=== PATIENT | female | born 1975 | race African-American/Black ===

== ENCOUNTER 2020-10-11 06:23 | Emergency (ER) | payer BC ==
[~2020-10-11] VITALS: Ht 162.6 cm; Wt 126.3 kg
[2020-10-11 06:30] VITALS: BP 157/88
--- NOTE | 2020-10-11 06:37 | PHYS DOC ---
Adult General Chief Complaint Chief Complaint: MEDICATION REFILL HPI HPI Patient is a 45-year-old female presenting for medication refill. She is asymptomatic today, states she [place] the area [place] town and ran out of her thyroid medication. She has been asymptomatic but reports it wi ll take at least 2 or 3 weeks for her to establish care with her chosen PCP, she has yet to establish care with an cops. Review of Systems Review of Systems Fourteen body systems of review of systems have been reviewed. See HPI for pertinent positives and negative responses, other knott all other systems are negative, non-pertinent or non-contributory Physical Exam Physical Exam Constitutional: Well developed, well nourished, no acute distress, non-toxic appearance. HENT: Normocephalic, atraumatic, bilateral external ears normal, oropharynx moist, no oral exudates, nose normal. Eyes: PERRLA, EOMI, conjunctiva normal, no discharge. Neck: Normal range of motion, no tenderness, supple, no stridor. Cardiovascular: Heart rate regular per monitor Lungs & Thorax: No respiratory distress or accessory muscle use, bilateral chest rise Abdomen: Abdomen soft, non-tender, bowel sounds present in all quadrants, no guarding or rebound, nonacute abdomen. Skin: Warm, dry, no erythema, no rash. Back: No tenderness, no CVA tenderness. Extremities: No tenderness, no cyanosis, no clubbing, ROM intact, no edema. Neurologic: Alert and oriented X 3, grossly normal motor & sensory function, no focal deficits noted. Psychologic: Affect normal, judgement normal, mood normal. EKG EKG [] Radiology/Procedures Radiology/Procedures [] Heart Score C/O Chest Pain: No Risk Factors: Risk Factors: DM, Current or recent (<one month) smoker, HTN, HLP, family history of CAD, obesity. Risk Scores: Risk Factors: DM, Current or recent (<one month) smoker, HTN, HLP, family history of CAD, obesity. Course & Med Decision Making Course & Med Decision Making ABCs unremarkable. Here for medication refill only on Tirosint which was refilled today. Plan of care discussed at length with need for close outpatient follow-up to review today's ER visit stressed. Strict return precautions were also discussed at length with good understanding by patient. Patient voiced understanding and agreement with the plan. Patient knows to come back for repeat evaluation if concerning signs or symptoms present prior to outpatient follow- up. Hemodynamically stable, ambulatory and well-appearing at time of disposition. Dragon Disclaimer Dragon Disclaimer This electronic medical record was generated, in whole or in part, using a voice recognition dictation system. Departure Departure: Impression: Primary Impression: Medication refill Additional Impression: Hypothyroid Disposition: HOME / SELF CARE / HOMELESS Condition: GOOD Referrals: PCP,NO (PCP) Additional Instructions: As discussed prior to ER departure, you presented for medication refill. We refilled this for you. As discussed it is encouraged that you continue your pursuit for close outpatient follow-up with your primary care physician and get established in local area with an cops. Please do not hesitate to come back for repeat evaluation if any concerning signs or symptoms present prior to establishing care with your primary care physician. It was a pleasure to take care of you and I wish you the best going forward Scripts Levothyroxine Sodium (TIROSINT) 100 Mcg Capsule 200 MCG PO DAILY for THYROID, #30 CAP Prov: LEIDA COHN DO 10/11/20 Problem Qualifiers LEIDA COHN DO Oct 11, 2020 06:37
[2020-10-11] MEDS ORDERED: TIROSINT PO (06:44)
[2020-10-11] MEDS ORDERED: LEVO100C PO (06:49)
== END 2020-10-11 06:56 | disposition home or self-care (01) ==
LOC: ER 06:23
DX: E03.9 Hypothyroidism, unspecified (principal); Z76.0 Encounter for issue of repeat prescription
CPT/HCPCS: 99284